=== PATIENT | female | born 1930 | race Caucasian/White ===

== ENCOUNTER 2017-05-19 07:44 | Day surgery (SDC) | payer MEDICARE, BC ==
[~2017-05-19] VITALS: Ht 152.4 cm
--- NOTE | ~2017-05-19 | OR ---
ADMIT: 05/19/2017 RM/LOC: [facility] MR#: [id number] [address] DARIAN HATFIELD [address] [place] [address] Operative/Delivery Room Report SEX: F AGE: 86 : 1930 SURGERY DATE: 05/19/2017 SURGEON: Juan Carlos Jose MD PREOPERATIVE DIAGNOSES: 1. History of gallstone pancreatitis. 2. Chronic cholecystitis. 3. Cholelithiasis. POSTOPERATIVE DIAGNOSES: 1. History of gallstone pancreatitis. 2. Chronic cholecystitis. 3. Cholelithiasis. FINAL PATHOLOGY: Pending. PROCEDURE: Laparoscopic cholecystectomy with intraoperative cholangiogram. MUSHROOM GROWING SUPERVISOR: ARNULFO Melgar who was necessary for adequate exposure, retraction, completion of this case. ANESTHESIA: General endotracheal tube anesthesia. ESTIMATED BLOOD LOSS: 20 mL or less. INDICATION FOR PROCEDURE: Please see H and P. DESCRIPTION OF PROCEDURE: After the risks, benefits, possible complications, and the alternatives had been explained, and informed consent had been obtained, the patient was taken back to the operating room, underwent general endotracheal tube anesthesia and the surgical field was prepped and draped in a sterile manner. An infraumbilical incision was made. The Veress needle was inserted. The abdomen was insufflated with CO2. Once there was adequate insufflation, a 5 mm port was placed. The camera was placed through this port site. Under direct visualization, a 10 mm epigastric, two 5 mm right upper quadrant ports. You can see in the first picture, she has this lobe coming around from her left side of the liver, just right over top of the area of the gallbladder. Made a little difficult plus her size, very petiteness and body habitus made this difficult just to maneuver around. Slowly cleaned down some adhesions as seen in picture #2 off the gallbladder. Slowly dissected out the cystic duct and cystic artery as seen nicely in picture #3. I placed a clip on the gallbladder side. Introduced a cholangiogram catheter percutaneously through the right upper quadrant, opened the duct. Catheter was placed in the duct and clipped and obtained an intraoperative cholangiogram that showed normal filling, actually dilated duct, dilated pancreatic duct, but I did not see any evidence of obstruction or stones. There was good filling into the duodenum. Anatomy was correct. The clip was removed. The catheter was ADMIT: 05/19/2017 RM/LOC: [facility] MR#: [id number] [address] DARIAN HATFIELD [facility] [address] [place] [address] Operative/Delivery Room Report SEX: F AGE: 86 : 1930 removed. Two clips were placed on the remaining cystic duct and it was divided. Behind this, cystic artery was dissected out. It was clipped proximally, distally, and divided, and then the gallbladder was removed from the liver bed using electrocautery and EndoShears. Placed in EndoCatch bag and removed through the epigastric port site. Inspecting the liver bed, there was good hemostasis. Irrigated and removed as much irrigation as possible. I injected 0.5% Marcaine into the incision sites for pain control. Closed the fascia of the epigastric port site with 0 Polysorb suture. All the ports were removed. All skin was closed with 4-0 Monocryl. Tolerated the procedure well, was extubated and taken to recovery room in stable and satisfactory condition. Juan Carlos Jose MD/ ailyn JOB #: [id number] CC: Juan Carlos Jose, Attending Physician Jesu Nathan, Family Physician
[~2017-05-19 07:44] MED LIST: ASPIRIN EC81 MG PO; COZAAR100 MG PO; METOPROLOL SUCC25 MG PO; NEURONTIN DPS100 MG PO; ULTRAM DPS50 MG PO
== END 2017-05-19 13:27 | disposition home or self-care (01) ==
LOC: SSS 07:44
DX: K80.10 Calculus of gallbladder with chronic cholecystitis without obstruction (principal); I10 Essential (primary) hypertension; I25.2 Old myocardial infarction; I25.10 Atherosclerotic heart disease of native coronary artery without angina pectoris; E78.5 Hyperlipidemia, unspecified; Z96.653 Presence of artificial knee joint, bilateral; Z79.899 Other long term (current) drug therapy; Z88.0 Allergy status to penicillin; Z79.82 Long term (current) use of aspirin; Z79.891 Long term (current) use of opiate analgesic